=== PATIENT | male | born 1960 | race Caucasian/White ===

== ENCOUNTER 2016-10-23 15:29 | Emergency (ER) | payer MEDICAID ==
[2016-10-23 15:56] VITALS: BP 153/95; PULSE 86; RESP 18; TEMP 96.8; O2SAT 99
--- NOTE | 2016-10-23 17:00 | ED PDOC ---
Addendum entered and electronically signed by Gil Sibley PA-C 10/23/16 18:23: Addendum Addendum: 10/23/16 18:22 pt refusing to leave or sign d/c papers without rx for percocet, demanding to speak with supervising physician. Dr. Andrews has spoken to pt and will Rx #5 tabs percocet. Original Note: HPI: Headache Time Seen by Provider: 10/23/16 16:01 Chief Complaint (Nursing): Headache Chief Complaint (Provider): headache History Per: Patient Additional Complaint(s): pt w/ hx migraines c/o persistant h/a for the past three days. no recent head injury or thunderclap h/a. c/o associated n/v. states pain is tight, bandlike over scalp bilaterally. no associated fever, dizziness, blurred vision, neck pain, cp, sob, abd pain, numbness, weakness to extremities. denies relief with tylenol at home. states the only thing that works for him is percocet. Past Medical History Reviewed: Historical Data, Nursing Documentation, Vital Signs Vital Signs: Last Vital Signs Temp 96.8 F L 10/23/16 15:52 Pulse 86 10/23/16 15:52 Resp 18 10/23/16 15:52 BP 153/95 H 10/23/16 15:52 Pulse Ox 99 10/23/16 15:52 - Medical History PMH: HTN - Surgical History Surgical History: Appendectomy - Family History Family History: States: No Known Family Hx - Social History Current smoker - smoking cessation education provided: No Alcohol: None Drugs: Denies - Home Medications Home Medications: Ambulatory Orders Medication Instructions Recorded Clindamycin [Cleocin] 300 mg PO QID #40 cap 02/21/15 oxyCODONE/Acetaminophen [Percocet 1 tab PO Q4H PRN #20 tab 02/21/15 5/325 mg Tab] Clindamycin [Cleocin] 300 mg PO TID #30 cap 07/16/15 Sulfamethoxazole/Trimethopri 1 tab PO BID #14 tab 07/16/15 [Bactrim Ds 800 mg-160 mg] Tramadol HCl [Ultram] 50 mg PO Q6 #15 tab 07/16/15 - Allergies Allergies/Adverse Reactions: Allergies Allergy/AdvReac Type Severity Reaction Status Date / Time No Known Allergies Allergy Verified 07/16/15 15:20 Review of Systems ROS Statement: Except As Marked, All Systems Reviewed And Found Negative Gastrointestinal: Positive for: Nausea, Vomiting Neurological: Positive for: Headache Physical Exam - Reviewed Nursing Documentation Reviewed: Yes Vital Signs Reviewed: Yes - Physical Exam Appears: Positive for: Well, Non-toxic, No Acute Distress Head Exam: Positive for: ATRAUMATIC, NORMAL INSPECTION, NORMOCEPHALIC Skin: Positive for: Normal Color, Warm, DRY Eye Exam: Positive for: EOMI, Normal appearance, PERRL ENT: Positive for: Normal ENT Inspection Neck: Positive for: Normal (no meningismus), Painless ROM Cardiovascular/Chest: Positive for: Regular Rate, Rhythm Respiratory: Positive for: CNT, Normal Breath Sounds Gastrointestinal/Abdominal: Positive for: Normal Exam, Bowel Sounds, Soft. Negative for: Tenderness Extremity: Positive for: Normal ROM. Negative for: Tenderness Neurologic/Psych: Positive for: Alert, apartment maintenance worker II-XII, Oriented, Gait (steady). Negative for: Motor/Sensory Deficits - ECG O2 Sat by Pulse Oximetry: 99 Medical Decision Making Medical Decision Making: pt w/ hx migraines presents c/o h/a for three days. sx more typical of tension h/a. no danger signs for severe h/a. offered toradol/reglan/imitrex for pain but pt insistant on receiving percocets. pt agrees to initial tx if he can receive percocet if tx fails. pt chatting with mother and sitting comfortably in exam chair. 1700 pt denies any relief with meds given. will give percocet and reeval. 1755 pt reclined in seat with clothes on ready for d/c. reports resolution of sx. will d/c home. Disposition - Clinical Impression Clinical Impression: Headache - Patient ED Disposition Is Patient to be Admitted: No - Disposition Referrals: Kurt Dial MD [Medical Doctor] - Disposition: Routine/Home Disposition Time: 17:57 Condition: GOOD Instructions: Migraine Headache (ED), Tension Headache (ED) Forms: [facility] ED School/Work Excuse
[2016-10-23] MEDS ORDERED: Oxycodone/Acetaminophen 5/325 mg Tab PO STA (17:07)
[2016-10-23] MEDS ORDERED: Oxycodone/Acetaminophen 5/325 mg Tab ONE (17:15)
== END 2016-10-23 18:39 | disposition home or self-care (01) ==
LOC: H.ER 15:29
DX: R51 Headache (principal); I10 Essential (primary) hypertension